=== PATIENT | female | born 1970 | race Two or more races ===

== ENCOUNTER 2017-05-16 14:37 | Day surgery (SDC) | payer OTHER ==
[~2017-05-16] VITALS: Ht 157.5 cm; Wt 58.1 kg
[2017-05-16 16:24] VITALS: Ht 157.5 cm; Wt 58.1 kg
[2017-05-16 16:41] VITALS: BP 107/60; PULSE 58; RESP 18
--- NOTE | 2017-05-16 17:17 | OPPN ---
Date/Time of Note Date/Time of Note DATE: 05/16/17 TIME: 17:09 Proc Note GI Procedure Date 05/16/17 Pre-procedure Diagnosis * Dyspepsia/reflux not responding to therapy Post-procedure Diagnosis Assessment: * Rule out eosinophilic esophagitis. Biopsies obtained * Distal erosive esophagitis. Rule out Leyva's esophagus. Biopsies obtained * Small hiatal hernia * Moderate antral gastritis. Rule out H. pylori infection. Biopsies obtained * Moderate amounts of fluid retained in the stomach. Rule out gastroparesis Plan: * Omeprazole 40 mg daily * Review pathology * Nuclear medicine gastric study to rule out gastroparesis * Consider Reglan pending results of gastric emptying study Surgeon CELESTE BUTTS MD . Professor Of Special Education none Anesthesia Type: moderate sedation (Versed 5 mg fentanyl 75 mcg administered push by Dr Butts) EBL none Transfusion required none Biopsy 1: Gastric antrum. Rule out H. pylori infection. Biopsy 2: Distal esophagus. Rule out Leyva's esophagus Biopsy 3: Mid esophagus. Rule out eosinophilic esophagitis Grafts/Implants none Complication(s) none Pt Condition post procedure: stable Disposition: home Indications: reflux Sx despite therapy Procedure Description After informed consent, with the patient/relatives understanding the procedure, its indications, potential risks and complications, including but not limited to : allergic reaction, bleeding, perforation or infection, and after all pertinent questions were answered to the patients satisfaction, the patient/ relatives signed witnessed informed consent. Following this, premedication was administered slowly IV push under careful cardiovascular and respiratory monitoring with pulse oximetry, automatic blood pressure, and youth nutritional monitor. Once the sedative effect was achieved the patient was place in the left lateral decubitus, the panendoscope was introduced and advanced under visual control. Careful examination of the upper gastrointestinal tract, both on insertion as well as withdrawal of the instrument disclosing the following findings: ESOPHAGUS: the mucosa of the entire esophagus was carefully examined and showed the following findings: There is multiple thin rings in the body of the esophagus suggestive of eosinophilic esophagitis. Biopsies were obtained. There is erythema edema and erosion of the mucosa at the e.g. junction. Biopsies obtained to rule out Leyva's esophagus. Otherwise the mucosa appears within normal limits. There is no evidence of varices, neoplasm, or stricture. Small hiatal Hernia identified. STOMACH: Upon entrance to the stomach air was insufflated, the gastric hansen distended normally. The mucosa of the fundus, body and antrum of the stomach was carefully examined both head-on and on retroflexion, and showed the following findings: There is erythema and edema of the mucosa of the antrum of the stomach. Biopsies were obtained to rule out H. pylori infection. Otherwise the mucosa appears within normal limits with no abnormalities. There is no evidence of ulcers or neoplasm. PYLORUS: The pylorus was carefully examined and showed the following findings: the pylorus appears patent and within normal limits, with no evidence of gastric outlet obstruction. DUODENUM: The duodenal mucosa was carefully examined in the duodenal bulb as well as the second portion of the duodenum and showed the following findings: the mucosa appears unremarkable with no evidence of duodenitis, ulcer or neoplasm. Copies To: CC: CELESTE BUTTS MD, MORDO MD May 16, 2017 17:17
[2017-05-16 17:40] VITALS: BP 114/56; PULSE 60; RESP 14
[2017-05-16] MEDS ORDERED: MIDAZOLAM 1 MG/ML 2 ML INJ ONE ×3 (17:44)
[2017-05-16] MEDS ORDERED: FENTAnyl 50 MCG/ML VIAL ONE (17:44)
== END 2017-05-16 18:32 | disposition home or self-care (01) ==
LOC: GIL 14:37
PROVIDERS: ATTEND Internal Medicine Gastroenterology
DX: K21.0 Gastro-esophageal reflux disease with esophagitis (principal); K44.9 Diaphragmatic hernia without obstruction or gangrene; K29.70 Gastritis, unspecified, without bleeding
CPT/HCPCS: 43239; 88305; 88312; 88313; J2250; J3010; Z7610